=== PATIENT | male | born 1980 | race Two or more races ===

== ENCOUNTER 2019-09-16 12:16 | Emergency (ER) | payer MEDICAID ==
--- NOTE | 2019-09-16 12:28 | EDM.PDOC ---
ED HPI GENERAL MEDICAL PROBLEM - General Stated Complaint: ABD PAIN Time Seen by Provider: 09/16/19 12:23 Source of Information: Reports: Patient History Limitations: Reports: No Limitations - History of Present Illness INITIAL COMMENTS - FREE TEXT/NARRATIVE: pt comes from [place] with c/o dull / sever, 8/10 epifastric pain radiating to left side of abd, started last night around 9 pm and has been getting worse since, report nausea, and 4 emesis with this this morning, also noticing non painful hemorrhoids with some blood with a nl BM this morning, pt denies any fever or chills, or any other associated sx or symptoms in the past or any other medical concerns. pt report daily hard BMs some time painful. denies any Hx of abd surgeries or current excessive regular alcohol use , but report past Hx of alcoholism. indicate Hx of anxiety and depression. Abdominal Pain Score (Numeric/FACES): 8 - Related Data Allergies Allergy/AdvReac Type Severity Reaction Status Date / Time Sulfa (Sulfonamide Allergy Other Verified 09/16/19 12:26 Antibiotics) Home Meds: Home Meds Escitalopram Oxalate 20 mg PO DAILY 09/16/19 [History] hydrOXYzine HCl [hydrOXYzine] 1 - 2 tab PO TID PRN 09/16/19 [History] ED ROS GENERAL - Review of Systems Review Of Systems: See Below Constitutional: Reports: No Symptoms. Denies: Fever, Chills, Fatigue HEENT: Reports: No Symptoms Respiratory: Reports: No Symptoms Cardiovascular: Reports: No Symptoms GI/Abdominal: Reports: Abdominal Pain, Anorexia, Nausea, Vomiting. Denies: Constipation, Diarrhea, Distension, Melena Musculoskeletal: Reports: No Symptoms Skin: Reports: No Symptoms Neurological: Reports: No Symptoms Psychiatric: Reports: Anxiety, Depression. Denies: Suicidal Ideation ED EXAM, GENERAL - Physical Exam Exam: See Below Exam Limited By: No Limitations General Appearance: Alert, No Apparent Distress, Moderate Distress Eye Exam: Bilateral Eye: Normal Inspection Ears: Normal External Exam, Normal TMs Nose: Normal Inspection Throat/Mouth: Normal Inspection, Normal Oropharynx Head: Atraumatic, Normocephalic Neck: Normal Inspection, Supple, Non-Tender, Full Range of Motion Respiratory/Chest: No Respiratory Distress, Lungs Clear, Normal Breath Sounds, No Accessory Muscle Use Cardiovascular: Normal Peripheral Pulses, Regular Rate, Rhythm, No Edema, No Murmur GI/Abdominal: Normal Bowel Sounds, Soft, Tender, Other (tender ove rthe epigastric area. ). No: Guarding, Rebound Back Exam: Normal Inspection, Full Range of Motion Extremities: Normal Inspection, Normal Range of Motion, Non-Tender Neurological: Alert, Oriented, CN II-XII Intact, No Motor/Sensory Deficits Psychiatric: Normal Affect Skin Exam: Warm Course - Vital Signs Text/Narrative:: lab results and unremarkable CT were explained to pt. pt is resting comfortably after dilaudid and fluids , and report now very mild discomfort. there are no signs of acute abd on exam, pt has mild elevation with liver enzymes and ketones in urine , likely from past hx of alcoholism and dehydration . pt GI symptoms include constipation and hemorrhoids as well, he is stable for outpatient mng, was given miralax here and was advised to start using OTC stool softeners. pt to follow with PCP in 2 days for re-check, if continues then with recurrent abd pain, then would recommend US of RUQ and HIDA scan. dx. abd pain. constipation. hemorrhoids. Last Recorded V/S: Last Vital Signs Temp 36.9 C 09/16/19 12:18 Pulse 94 09/16/19 15:37 Resp 18 09/16/19 15:37 BP 142/97 H 09/16/19 15:37 Pulse Ox 97 09/16/19 15:37 - Orders/Labs/Meds Orders: Active Orders 24 hr Category Date Time Status Abdomen 2V AP Flat Upright [CR] Stat Exams 09/16/19 12:30 Taken Abdomen Pelvis w Cont [CT] Stat Exams 09/16/19 13:25 Taken Sodium Chloride 0.9% [Normal Saline] 1,000 ml Med 09/16/19 12:30 Active IV .BOLUS Medication Orders Sodium Chloride (Normal Saline) 1,000 mls @ 999 drops/hr IV .BOLUS ONE Stop: 09/17/19 03:30 Last Admin: 09/16/19 12:32 Dose: 999 drops/hr Labs: Laboratory Tests 09/16/19 09/16/19 09/16/19 Range/Units 12:45 12:45 12:45 WBC 5.8 (4.5-12.0) X10-3/uL RBC 4.97 (4.30-5.75) x10(6)uL Hgb 16.2 (13.5-17.8) g/dL Hct 47.0 (30.0-51.3) % MCV 94.5 (80-96) fL MCH 32.6 (27.7-33.6) pg MCHC 34.5 (32.2-35.4) g/dL RDW 12.6 (11.5-15.5) % Plt Count 327 (125-369) X10(3)uL MPV 6.5 L (7.4-10.4) fL Neut % (Auto) 61.6 (46-82) % Lymph % (Auto) 30.5 (13-37) % [place] % (Auto) 5.7 (4-12) % Eos % (Auto) 2 (1.0-5.0) % Baso % (Auto) 1 (0-2) % Neut # (Auto) 3.6 (1.6-8.3) # Lymph # (Auto) 1.8 (0.6-5.0) # [place] # (Auto) 0.3 (0.0-1.3) # Eos # (Auto) 0.1 (0.0-0.8) # Baso # (Auto) 0.0 (0.0-0.2) # Sodium 141 (135-145) mmol/L Potassium 3.6 (3.5-5.3) mmol/L Chloride 100 (100-110) mmol/L Carbon Dioxide 24 (21-32) mmol/L BUN 6 L (7-18) mg/dL Creatinine 0.8 (0.70-1.30) mg/dL Est Cr Clr Drug Dosing 146.99 mL/min Estimated GFR (MDRD) > 60 (>60) BUN/Creatinine Ratio 7.5 L (9-20) Glucose 86 (80-116) mg/dL Calcium 8.6 (8.6-10.2) mg/dL Total Bilirubin 0.9 (0.1-1.3) mg/dL AST 45 H (5-25) IU/L ALT 51 H (12-36) U/L Alkaline Phosphatase 74 (56-112) IU/L Total Protein 8.5 H (6.0-8.0) g/dL Albumin 4.3 (3.5-5.2) g/dL Globulin 4.2 g/dL Albumin/Globulin Ratio 1.0 Amylase 40 (25-115) U/L Lipase 96 (73-393) U/L Urine Color (YELLOW) Urine Appearance (CLEAR) Urine pH (5.0-6.5) Ur Specific [place] (1.010-1.025) Urine Protein (NEGATIVE) mg/dL Urine Glucose (UA) (NORMAL) mg/dL Urine Ketones (NEGATIVE) mg/dL Urine Occult Blood (NEGATIVE) Urine Nitrite (NEGATIVE) Urine Bilirubin (NEGATIVE) Urine Urobilinogen (NEGATIVE) mg/dL Ur Leukocyte Esterase (NEGATIVE) Urine RBC (0-5) Urine WBC (0-5) Ur Squamous Epith Cells (NS,R,O) Urine Bacteria (NS) Urine Mucus (NS) 09/16/19 Range/Units 12:55 WBC (4.5-12.0) X10-3/uL RBC (4.30-5.75) x10(6)uL Hgb (13.5-17.8) g/dL Hct (30.0-51.3) % MCV (80-96) fL MCH (27.7-33.6) pg MCHC (32.2-35.4) g/dL RDW (11.5-15.5) % Plt Count (125-369) X10(3)uL MPV (7.4-10.4) fL Neut % (Auto) (46-82) % Lymph % (Auto) (13-37) % [place] % (Auto) (4-12) % Eos % (Auto) (1.0-5.0) % Baso % (Auto) (0-2) % Neut # (Auto) (1.6-8.3) # Lymph # (Auto) (0.6-5.0) # Crawford # (Auto) (0.0-1.3) # Eos # (Auto) (0.0-0.8) # Baso # (Auto) (0.0-0.2) # Sodium (135-145) mmol/L Potassium (3.5-5.3) mmol/L Chloride (100-110) mmol/L Carbon Dioxide (21-32) mmol/L BUN (7-18) mg/dL Creatinine (0.70-1.30) mg/dL Est Cr Clr Drug Dosing mL/min Estimated GFR (MDRD) (>60) BUN/Creatinine Ratio (9-20) Glucose (80-116) mg/dL Calcium (8.6-10.2) mg/dL Total Bilirubin (0.1-1.3) mg/dL AST (5-25) IU/L ALT (12-36) U/L Alkaline Phosphatase (56-112) IU/L Total Protein (6.0-8.0) g/dL Albumin (3.5-5.2) g/dL Globulin g/dL Albumin/Globulin Ratio Amylase (25-115) U/L Lipase (73-393) U/L Urine Color Yellow (YELLOW) Urine Appearance Clear (CLEAR) Urine pH 6.5 (5.0-6.5) Ur Specific [place] 1.015 (1.010-1.025) Urine Protein 30 H (NEGATIVE) mg/dL Urine Glucose (UA) Normal (NORMAL) mg/dL Urine Ketones 150 H (NEGATIVE) mg/dL Urine Occult Blood Trace (NEGATIVE) Urine Nitrite Negative (NEGATIVE) Urine Bilirubin Small H (NEGATIVE) Urine Urobilinogen 1 H (NEGATIVE) mg/dL Ur Leukocyte Esterase Negative (NEGATIVE) Urine RBC 0-5 (0-5) Urine WBC 0-5 (0-5) Ur Squamous Epith Cells Rare (NS,R,O) Urine Bacteria Rare H (NS) Urine Mucus Moderate H (NS) Meds: Medications Generic Name Dose Route Start Last Admin Trade Name Freq PRN Reason Stop Dose Admin Sodium Chloride 1,000 mls @ 999 drops/hr 09/16/19 12:30 09/16/19 12:32 Normal Saline IV 09/17/19 03:30 999 drops/hr .BOLUS ONE Administration Discontinued Medications Generic Name Dose Route Start Last Admin Trade Name Freq PRN Reason Stop Dose Admin Diatrizoate Meglum/Diatrizoate Sod 30 ml 09/16/19 14:51 09/16/19 15:16 Gastrografin 37% PO 09/16/19 14:52 30 ml . DIRECTED ONE Administration Hydromorphone HCl 1 mg 09/16/19 12:30 09/16/19 12:34 Dilaudid IVPUSH 09/16/19 12:31 1 mg ONETIME ONE Administration Prochlorperazine Edisylate 10 52 mls @ 150 mls/hr 09/16/19 13:27 09/16/19 13: 30 mg/ Sodium Chloride IV 09/16/19 13:47 150 mls/hr ONETIME ONE Administration Iopamidol 100 ml 09/16/19 14:51 09/16/19 15:16 Isovue-370 (76%) IV 09/16/19 14:52 100 ml . DIRECTED ONE Administration Departure - Departure Time of Disposition: 16:37 Disposition: Home, Self-Care 01 Clinical Impression: Epigastric pain - Discharge Information Sepsis Event Note - Focused Exam Vital Signs: Vital Signs Temp Pulse Resp BP Pulse Ox 09/16/19 15:37 94 18 142/97 H 97 09/16/19 13:46 108 H 20 132/89 100 09/16/19 12:18 36.9 C 109 H 20 143/102 H 96 Date Exam was Performed: 09/16/19 Time Exam was Performed: 16:29 - My Orders Last 24 Hours: My Active Orders 09/16/19 12:30 Abdomen 2V AP Flat Upright [CR] Stat Sodium Chloride 0.9% [Normal Saline] 1,000 ml IV .BOLUS 09/16/19 13:25 Abdomen Pelvis w Cont [CT] Stat - Assessment/Plan Last 24 Hours: My Active Orders 09/16/19 12:30 Abdomen 2V AP Flat Upright [CR] Stat Sodium Chloride 0.9% [Normal Saline] 1,000 ml IV .BOLUS 09/16/19 13:25 Abdomen Pelvis w Cont [CT] Stat
[2019-09-16] MEDS ORDERED: Sodium Chloride 0.9% 1,000 ML IV ONE (12:30)
[2019-09-16] MEDS ORDERED: HYDROmorphone 2 MG/ML SDV IVPUSH ONE (12:30)
[2019-09-16] MEDS ORDERED: Prochlorperazine 10 MG in Sodium Chloride 0.9% 50 ML IV ONE (13:27)
[2019-09-16] MEDS ORDERED: Diatrizoate Meglumine/Diatrizoate Sodium 37% 30 ML Bottle PO ONE (14:51)
[2019-09-16] MEDS ORDERED: Iopamidol 755 Mg/ML 100 ML Bottle IV ONE (14:51)
[2019-09-16] MEDS ORDERED: Polyethylene Glycol 3350 Powder 17 GM Packet PO ONE (16:37)
--- NOTE | 2019-09-18 14:34 | CR ---
INDICATION: Abdominal pain, bloody stool. ABDOMEN, 2 VIEWS: Four images of the abdomen in supine and upright projections were obtained 09/16/19 and compared with 10/22/08. No evidence of free air or obstruction was identified with a nonspecific pattern of gas and feces. No organomegaly, mass lesions or pathologic calcifications were noted. Minimal dextroconcave scoliosis at the lower lumbar spine is noted. Grommets are noted overlying the pubic symphysis superiorly on the right. IMPRESSION: Nonacute abdomen. MTDD
== END 2019-09-16 17:00 | disposition home or self-care (01) ==
LOC: FB.ED 12:16
DX: R10.13 Epigastric pain (principal); K59.00 Constipation, unspecified; K64.9 Unspecified hemorrhoids; F41.9 Anxiety disorder, unspecified; F32.9 Major depressive disorder, single episode, unspecified; Z88.2 Allergy status to sulfonamides; Z79.899 Other long term (current) drug therapy
CPT/HCPCS: 36415; 74019; 74177; 80053; 81001; 82150; 83690; 85025; 96361; 96365; 96375; 99285-25; A9270-GY; J0780; J1170; J7030; J7050; Q9963; Q9967

== ENCOUNTER 2020-08-04 14:22 | Emergency (ER) | payer BC, MEDICAID ==
[2020-08-04] MEDS ORDERED: Ondansetron 4 MG Tab.DIS PO ONE (14:23)
[2020-08-04] MEDS ORDERED: LORazepam 0.5 MG Tab PO ONE (14:23)
[2020-08-04] MEDS: Sodium Chloride 0.9% 1,000 ML IV ONE (14:50)
[2020-08-04] MEDS: Ondansetron 4 MG/2 ML SDV IVPUSH ONE (14:51)
--- NOTE | 2020-08-04 14:58 | EDM.PDOC ---
ED HPI GENERAL MEDICAL PROBLEM - General Chief Complaint: Abdominal Pain Stated Complaint: VOMITING Time Seen by Provider: 08/04/20 14:35 Source of Information: Reports: Patient, RN. Denies: Old Records History Limitations: Reports: Other (no old records) - History of Present Illness INITIAL COMMENTS - FREE TEXT/NARRATIVE: 30 yo male presents with recurrent nausea and vomiting after binge drinking last night. He consumed about a 12 pack of beer and a fifth of vodka. Says he has a pHx of heavy ETOH use, but had not drank in 3 mos. Has never been to detox(later admitted he has been to detox a couple times). His stools have been normal. He thinks he has vomited about 20 times. More recent emesis have been blood tinged. He is dizzy with standing. He has a hx of anxiety and feels anxious now. Has some diffuse abdominal pain, worse in the epigastrium. He has no hx of pancreatitis. His fiance is coming later to the ER to be with him and could possibly give him a ride home. He is not interested in detox as this time. He is currently on no regular prescription meds. He denies recent use of either tobacco or marijuana. Onset: Today Onset Date: 08/04/20 Duration: Hour(s): Location: Reports: Abdomen Quality: Reports: Burning Severity: Moderate Improves with: Reports: None Worsens with: Reports: Other (time/ETOH consumption) Context: Reports: Other (See HPI) Associated Symptoms: Reports: Nausea/Vomiting, Other (anxiety). Denies: Fever/Chills Treatments [employer]: Reports: Other (see below) (none) L upper abdomen Pain Score (Numeric/FACES): 10 - Related Data Allergies Allergy/AdvReac Type Severity Reaction Status Date / Time No Known Allergies Allergy Verified 08/04/20 14:30 Home Meds: Home Meds hydrOXYzine HCL [Atarax] 25 mg PO TID PRN 08/04/20 [History] ED ROS GENERAL - Review of Systems Review Of Systems: See Below Constitutional: Reports: No Symptoms HEENT: Reports: No Symptoms Respiratory: Reports: No Symptoms Cardiovascular: Reports: No Symptoms Endocrine: Reports: No Symptoms GI/Abdominal: Reports: Abdominal Pain, Hematemesis, Nausea, Vomiting. Denies: Black Stool, Bloody Stool, Constipation, Diarrhea, Distension, Hematochezia : Reports: Dysuria (mild with dark urine). Denies: Flank Pain, Hematuria Musculoskeletal: Reports: No Symptoms Skin: Reports: No Symptoms Neurological: Reports: No Symptoms Psychiatric: Reports: Anxiety ED EXAM, GI/ABD - Physical Exam Exam: See Below Exam Limited By: No Limitations General Appearance: Alert, WD/WN, Mild Distress Eyes: Bilateral: Normal Appearance Ears: Normal External Exam, Normal Canal, Hearing Grossly Normal Nose: Normal Inspection, No Blood Throat/Mouth: Normal Inspection, Normal Lips, Normal Oropharynx, Normal Voice, No Airway Compromise Head: Atraumatic, Normocephalic Neck: Normal Inspection Respiratory/Chest: No Respiratory Distress, Lungs Clear, Normal Breath Sounds, No Accessory Muscle Use Cardiovascular: Regular Rate, Rhythm, No Edema, Tachycardia GI/Abdominal Exam: Normal Bowel Sounds, Soft, No Distention, Tender (diffusely, worse in epigastrium). No: Non-Tender, Distended, Guarding, Rigid, Rebound Extremities: Normal Inspection Neurological: Alert, Oriented, CN II-XII Intact, Normal Cognition, No Motor/Sensory Deficits Psychiatric: Anxious Skin Exam: Warm, Dry, Intact, Normal Color, No Rash. No: Jaundice Course - Vital Signs Last Recorded V/S: Last Vital Signs Temp 36.7 C 08/04/20 14:22 Pulse 113 H 08/04/20 16:23 Resp 20 08/04/20 16:23 BP 158/88 H 08/04/20 16:23 Pulse Ox 98 08/04/20 16:23 Orthostatic Blood Pressure [ 154/110 Standing] Orthostatic Blood Pressure [ 154/103 Sitting] Orthostatic Blood Pressure [ 135/99 Supine] - Orders/Labs/Meds Orders: Active Orders 24 hr Category Date Time Status Orthostatic Vital Signs [RC] ASDIRECTED Care 08/04/20 15:28 Active Labs: Laboratory Tests 08/04/20 08/04/20 08/04/20 Range/Units 14:10 14:30 14:30 Sodium 137 (135-145) mmol/L Potassium 3.8 (3.5-5.3) mmol/L Chloride 97 L (100-110) mmol/L Carbon Dioxide 22 (21-32) mmol/L BUN 5 L (7-18) mg/dL Creatinine 1.0 (0.70-1.30) mg/dL Est Cr Clr Drug Dosing 127.87 mL/min Estimated GFR (MDRD) > 60 (>60) BUN/Creatinine Ratio 5.0 L (9-20) Glucose 145 H (80-116) mg/dL Calcium 9.1 (8.6-10.2) mg/dL Amylase 80 (25-115) U/L Urine Color Yellow (YELLOW) Urine Appearance Clear (CLEAR) Urine pH 6.0 (5.0-6.5) Ur Specific [place] 1.030 H (1.010-1.025) Urine Protein 30 H (NEGATIVE) mg/dL Urine Glucose (UA) Normal (NORMAL) mg/dL Urine Ketones 15 H (NEGATIVE) mg/dL Urine Occult Blood Moderate H (NEGATIVE) Urine Nitrite Negative (NEGATIVE) Urine Bilirubin Negative (NEGATIVE) Urine Urobilinogen Normal (NEGATIVE) mg/dL Ur Leukocyte Esterase Negative (NEGATIVE) Urine RBC 0-5 (0-5) Urine WBC 0-5 (0-5) Ur Squamous Epith Cells Occasional (NS,R,O) Urine Bacteria Few H (NS) Fine Granular Casts Few H (NS) Meds: Medications Discontinued Medications Generic Name Dose Route Start Last Admin Trade Name Freq PRN Reason Stop Dose Admin Al Hydroxide/Mg Hydroxide 30 ml 08/04/20 15:49 08/04/20 16:02 Mag-Al Susp PO 08/04/20 15:50 30 ml NOW STA Administration Al Hydroxide/Mg Hydroxide 15 0 ml 08/04/20 14:37 08/04/20 15:05 ml/ Lidocaine HCl 15 ml PO 08/04/20 14:38 30 ml ONETIME ONE Administration Lactated Ringer's 1,000 mls @ 1,000 mls/hr 08/04/20 14:25 08/04/20 15:21 Ringers, Lactated IV 08/04/20 15:24 Not Given BOLUS ONE Sodium Chloride 1,000 mls @ 1,000 mls/hr 08/04/20 15:05 08/04/20 14:50 Normal Saline IV 08/04/20 16:04 1,000 mls/hr .BOLUS ONE Administration Lorazepam 1 mg 08/04/20 14:47 08/04/20 15:05 Ativan PO 08/04/20 14:48 1 mg ONETIME ONE Administration Lorazepam 1 mg 08/04/20 15:32 08/04/20 15:35 Ativan PO 08/04/20 15:33 1 mg ONETIME ONE Administration Ondansetron HCl 4 mg 08/04/20 14:26 08/04/20 14:51 Zofran IVPUSH 08/04/20 14:27 4 mg ONETIME ONE Administration Departure - Departure Time of Disposition: 17:10 Disposition: Home, Self-Care 01 Condition: Fair Clinical Impression: Esophagitis, Alcohol consumption binge drinking, Anxiety Alcoholic gastritis Qualifiers: Chronicity: acute Gastritis bleeding: with bleeding Qualified Code(s): K29.21 - Alcoholic gastritis with bleeding - Discharge Information *PRESCRIPTION DRUG MONITORING PROGRAM REVIEWED*: No *COPY OF PRESCRIPTION DRUG MONITORING REPORT IN PATIENT LAURA: No Referrals: PCP,None [Ordering Only Provider] - Forms: ED Department Discharge Additional Instructions: Use Zofran ODT 4 mg under your tongue every 6 hrs as needed for nausea. Take lorazepam 1 mg every 4-6 hrs for anxiety. Take Maalox or Gaviscon to settle and heal your stomach and esophagus. No alcohol. F/U with your doctor as needed. Sepsis Event Note (ED) - Evaluation Sepsis Screening Result: No Definite Risk - Focused Exam Vital Signs: Vital Signs Temp Pulse Resp BP Pulse Ox 08/04/20 16:23 113 H 20 158/88 H 98 08/04/20 15:28 112 H 24 H 145/94 H 99 08/04/20 14:50 121 H 24 H 121/108 H 98 08/04/20 14:22 36.7 C 130 H 20 182/105 H 99 - My Orders Last 24 Hours: My Active Orders 08/04/20 15:28 Orthostatic Vital Signs [RC] ASDIRECTED - Assessment/Plan Last 24 Hours: My Active Orders 08/04/20 15:28 Orthostatic Vital Signs [RC] ASDIRECTED
[2020-08-04] MEDS: Alum Hydroxide/Mag Hydroxide 15 ML, Lidocaine 2% 15 ML PO ONE ×2 (15:05)
[2020-08-04] MEDS: LORazepam 1 MG Tab PO ONE ×2 (15:05→15:35)
[2020-08-04] MEDS: Lactated Ringers 1,000 ML IV ONE (15:21)
[2020-08-04] MEDS: Aluminum Hydroxide/Magnesium Hydroxide Susp 30 ML Cup PO STA (16:02)
== END 2020-08-04 17:10 | disposition home or self-care (01) ==
LOC: MERGE 14:22 → FB.ED 14:22
DX: K29.21 Alcoholic gastritis with bleeding (principal); F41.9 Anxiety disorder, unspecified; K20.90 Esophagitis, unspecified without bleeding; F50.81 Binge eating disorder; Z72.89 Other problems related to lifestyle
CPT/HCPCS: 36415; 80048; 81001; 82150; 96374; 99284; A9270; J2405; J7030

== ENCOUNTER → 2025-09-06 | Day surgery (SDC) | payer MEDICAID ==
[~2025-09-06] MED LIST: Ketamine 500 mg/10 ML MDV IV ONE; Midazolam 1 MG/ML 2 ML SDV IV ONE; Propofol 200 MG/20 ML SDV IV ONE; Sodium Chloride 0.9% 10 ML Syringe FLUSH PRN
[2025-09-06] MEDS: Lactated Ringers 1,000 ML IV SCH (11:11)
== END | disposition home or self-care (01) ==
LOC: FB.SDS 07:54
PROVIDERS: ATTEND Surgery
DX: K63.5 Polyp of colon (principal); K57.31 Diverticulosis of large intestine without perforation or abscess with bleeding; K62.89 Other specified diseases of anus and rectum; K64.8 Other hemorrhoids; Z88.2 Allergy status to sulfonamides; Z87.891 Personal history of nicotine dependence
CPT/HCPCS: 00811; 88305; A9270-GY; J2003; J2250; J2704; J3490; J7120